=== PATIENT | female | born 1950 | race Caucasian/White ===

== ENCOUNTER → 2019-07-30 14:31 | Outpatient (CLI) | payer OTHER ==
--- NOTE | 2019-07-30 15:37 | NUR ---
TIME OUT TODAY AT 1515HRS FOR RT SHOULDER ARTHROGRAM
== END | disposition home or self-care (01) ==
LOC: D.RAD 14:30 → D.MRI 15:30
PROVIDERS: ATTEND Nurse Practitioner Family
DX: M25.511 Pain in right shoulder (principal)

== ENCOUNTER → 2020-06-16 09:34 | Outpatient (CLI) | payer OTHER ==
--- NOTE | 2020-06-17 12:15 | ST ---
PATIENT:ZABRINA RODRIGUEZ MEDICAL RECORD: [id number] SEX: F LOCATION:[facility] ORDER #: ADMISSION DATE: 06/16/20 AGE OF PATIENT: 69 REFERRING PHYSICIAN: INTERPRETING PHYSICIAN: KEYSHAWN BUSTOS MD DATE OF SERVICE: 06/16/2020 NUCLEAR STRESS TEST Gated is normal. Normal wall motion, normal wall thickening, calculated EF 72%. SPECT imaging: SPECT imaging was performed. Short axis view: Shows a reversible defect extending from the mid anterior wall down to the anterior apex and apical region, this was confirmed. Horizontal axis: With a mid anterior defect and with the mid anterior wall down to the anterior apical, inferior apical regions. Vertical axis: Vertical axis shows good uptake along the lateral wall and septum. FINAL IMPRESSION: 1. Normal gated, normal wall motion, normal EF 72%. 2. Abnormal SPECT imaging with a reversible defect along the mid anterior wall down to the anterior apex to apical region seen in multiple views. FINAL IMPRESSION: This patient with multiple risk factors and symptoms. The scan is suspicious for ischemic coronary artery disease. The defect severity is moderate defect, size is medium. Consider diagnostic angiography if clinically indicated. TRANSINT:[id number] Voice Confirmation ID: [id number] DOCUMENT ID: [id number] KEYSHAWN BUSTOS MD at 1215 CC: [id number] DICTATION DATE: 06/16/20 1523 LATEX SPOOLER: 06/17/20 0335 DEP CLI 06/16/20 [place] [id number]
== END | disposition home or self-care (01) ==
LOC: D.HCCARDIO 01-16 09:30 → D.HCCECHO 01-16 10:00
PROVIDERS: ATTEND Internal Medicine Interventional Cardiology
DX: R06.09 Other forms of dyspnea (principal)

== ENCOUNTER 2020-06-25 06:47 | Day surgery (SDC) | payer OTHER ==
[~2020-06-25] VITALS: Ht 160 cm; Wt 91.2 kg
[2020-06-25] MEDS ORDERED: LEVOTHYROXINE75 MCG PO (06:56)
[2020-06-25] MEDS ORDERED: METFORMIN HCL500 M1 PO (06:56)
[2020-06-25] MEDS ORDERED: NEXIUM20 MG PO (06:57)
[2020-06-25] MEDS ORDERED: BREO ELLIPTA 11 EACH INH (06:58)
[2020-06-25] MEDS ORDERED: RESTASIS MULTI1.5 ML EACH EYE (06:58)
[2020-06-25] MEDS ORDERED: SYNTHROID88 MCG PO (07:01)
[2020-06-25] MEDS ORDERED: IPRATROPIUM BRO15 M1 NASAL (07:02)
[2020-06-25] MEDS ORDERED: EFFEXOR XR75 MG PO (07:02)
[2020-06-25] MEDS ORDERED: K-DUR20 MEQ PO (07:02)
[2020-06-25] MEDS ORDERED: CHLOR PO (07:03)
[2020-06-25] MEDS ORDERED: ATENOL PO (07:03)
[2020-06-25] MEDS ORDERED: [UNRECOGNIZED DRUG - OTHER] PO (07:03)
[2020-06-25] MEDS ORDERED: LIPITOR20 MG PO (07:04)
[2020-06-25] MEDS ORDERED: SINGULAIR10 MG PO (07:04)
[2020-06-25] MEDS ORDERED: MACROBID100 MG PO (07:05)
[2020-06-25] MEDS ORDERED: PREDNISONE20 MG PO (07:06)
[2020-06-25] MEDS ORDERED: PEPCID AC20 MG PO (07:07)
[2020-06-25 07:29] VITALS: BP 130/64; Ht 160 cm; Wt 91.2 kg
[2020-06-25 07:33] LABS: BASOPHILS 0.4 % (0-2); EOSINOPHILS 0.1 % (0-7); HEMATOCRIT 44.1 % (36.0-48.0); HEMOGLOBIN 14.8 g/dL (12-16); LYMPHOCYTES 9.3 % (15-50); MCHC 33.5 g/dL (31.0-37.0); MCV 83.5 fL (80.0-100.0); MEAN PLATELET VOLUME 7.8 fL (7.4-10.4); MONOCYTES 2.9 % (2-11); NEUTROPHILS 87.3 % (40-80); PLATELET COUNT 462 10x3/uL (130-400); RBC 5.28 10x6/uL (4.00-5.40); RDW 13.8 % (11.5-14.5); WBC 13.8 10x3/uL (4.8-10.8)
[2020-06-25 08:14] LABS: ANION GAP 13.5 mmol/L (8-16); CARBON DIOXIDE 28.9 mmol/L (21.0-32.0); CHOL - HDL RATIO 3.1 ratio (2.3-4.1); CREATININE - SERUM 0.9 mg/dL (0.6-1.3); LDL-HDL RATIO 1.8 ratio (1.5-3.5); POTASSIUM - SERUM 3.4 mmol/L (3.5-5.1)
--- NOTE | 2020-06-25 08:50 | NUR ---
PT ARRIVED BY STRETCHER. PLACED ON MONITORS. ASSESSMENT COMPLETED. VSS AT THIS TIME. CALL LIGHT WITHIN REACH.
--- NOTE | 2020-06-25 09:05 | NUR ---
RIGHT WRIST Z BAND IN PLACE. NO BLEEDING/HEMATOMA NOTED. CALL LIGHT WITHIN REACH. PT DENIES NAUSEA/PAIN. SET UP WITH TEA TO DRINK.
--- NOTE | 2020-06-25 09:35 | NUR ---
PT RESTING COMFORTABLY. VSS. RIGHT WRIST Z BAND IN PLACE. NO BLEEDING/HEMATOMA NOTED. CALL LIGHT WITHIN REACH. FAMILY AT BEDSIDE.
--- NOTE | 2020-06-25 10:01 | NUR ---
RIGHT WRIST Z BAND IN PLACE. NO BLEEDING/HEMATOMA NOTED. CALL LIGHT WITHIN REACH. VSS AT THIS TIME.
--- NOTE | 2020-06-25 10:28 | NUR ---
2cc OF AIR REMOVED FROM Z BAND. NO BLEEDING/HEMATOMA NOTED. CALL LIGHT WITHIN REACH. VSS AT THIS TIME. PT RESTING COMFORTABLY.
--- NOTE | 2020-06-25 10:46 | NUR ---
3cc OF AIR REMOVED FROM Z BAND. NO BLEEDING/HEMATOMA NOTED. DENIES NAUSEA/PAIN.
--- NOTE | 2020-06-25 11:00 | NUR ---
5cc OF AIR REMOVED FROM Z BAND. NO BLEEDING/HEMATOMA NOTED. DR. LEIJA ROUNDED AND SPOKE WITH PT AND PT'S FAMILY. ALL QUESTIONS ANSWERED.
--- NOTE | 2020-06-25 11:25 | NUR ---
Z BAND REMOVED AND DRESSING APPLIED. NO BLEEDING/HEMATOMA NOTED. RIGHT WRIST BRACE IN PLACE. I WALKED DOWN TO KITCHEN TO GET PT A CHEESE SANDWICH. PT SET UP WITH SANDWICH TRAY. WILL WAIT UNTIL PT IS FINISHED EATING TO DISCHARGE HOME.
--- NOTE | 2020-06-25 11:45 | NUR ---
PT FINISHED WITH SANDWICH. DENIES NAUSEA/PAIN. RIGHT WRIST DRESSING IS C/D/I. NO S/S OF HEMATOMA NOTED. DISCUSSED DISCHARGE INSTRUCTIONS WITH PT. SHE STATED SHE JUST TOOK HER METFORMIN FROM HOME. I INSTRUCTED HER TO NOT TAKE ANYMORE FOR 48 HOURS. SHE VOICED UNDERSTANDING. I ALSO INSTRUCTED HER TO DRINK PLENTY OF WATER OVER THE NEXT 2 DAYS. PIV D/C'D WITH CATH TIP INTACT. PT INSTRUCTED TO GET DRESSED. NO ASSISTANCE NEEDED. FAMILY AT BEDSIDE TO ASSIST. CALL LIGHT LEFT WITHIN REACH.
--- NOTE | 2020-06-25 11:55 | NUR ---
PT AMBULATED TO RESTROOM. VOIDED WITHOUT DIFFICULTY. STEADY GAIT NOTED. RIGHT WRIST DRESSING C/D/I. NO S/S OF HEMATOMA NOTED. PT TAKEN OUT TO VEHICLE BY WHEELCHAIR. NO S/S OF DISTRESS NOTED. ALL BELONGINGS AND PAPERWORK IN HAND.
== END 2020-06-25 11:55 | disposition home or self-care (01) ==
LOC: D.CATH 06:47
PROVIDERS: ATTEND Internal Medicine Cardiovascular Disease
DX: I20.9 Angina pectoris, unspecified (principal); R94.39 Abnormal result of other cardiovascular function study; R06.09 Other forms of dyspnea; J45.909 Unspecified asthma, uncomplicated; Z82.49 Family history of ischemic heart disease and other diseases of the circulatory system